=== PATIENT | male | born 1980 | race Two or more races ===

== ENCOUNTER 2019-03-30 09:33 | Emergency (ER) | payer OTHER ==
[~2019-03-30] VITALS: Ht 177.8 cm; Wt 132.0 kg
[2019-03-30 09:39] VITALS: Ht 177.8 cm; Wt 132.0 kg
[2019-03-30 11:32] VITALS: BP 154/62
== END 2019-03-30 11:33 | disposition home or self-care (01) ==
LOC: ED 09:33
DX: J03.90 Acute tonsillitis, unspecified (principal)
CPT/HCPCS: J0561; J1100; J1885